=== PATIENT | male | born 2000 | race Two or more races ===

== ENCOUNTER 2019-09-26 08:37 | Emergency (ER) | payer MEDICAID, OTHER ==
[~2019-09-26] VITALS: Ht 177.8 cm; Wt 65.8 kg
[2019-09-26] MEDS ORDERED: ONDANSETRON HCL 4 MG/2 ML VIAL IV ONE (09:00)
[2019-09-26] MEDS ORDERED: FAMOTIDINE (10MG/ML) 2ML VL IV ONE (09:00)
[2019-09-26] MEDS ORDERED: SODIUM CHLORIDE 0.9% 1,000 ML IVB ONE (09:00)
[2019-09-26 09:40] LABS: Basophils # (auto) 0 uL; Basophils % (auto) 0.4 % (0.0-2.0); Eosinophils # (auto) 0.2 uL; Eosinophils % (auto) 1.8 % (0.0-7.0); Hematocrit 46.3 % (41.0-53.0); Hemoglobin 15.8 g/dL (13.5-17.5); Lymphocytes # (auto) 0.8 uL; Lymphocytes % (auto) 6.1 % (10.0-50.0); Mean Corpuscular Hemoglobin 31.1 pg (28.0-32.0); Mean Corpuscular Hgb Conc. 34.1 g/dL (32.0-36.0); Monocytes # (auto) 0.8 uL; Monocytes % (auto) 6.9 % (0.0-12.0); Neutrophils # (auto) 10.4 uL; Neutrophils % (auto) 84.8 % (37.0-80.0); Platelet Count (auto) 245 10^3/uL (140-450); Red Blood Cells 5.09 10^6/uL (4.5-5.90); Red Cell Distribution Width 13.3 % (11.8-14.3); White Blood Cell 12.3 10^3/uL (4.4-10.8)
[2019-09-26 09:57] LABS: Albumin 3.9 g/dL (3.4-5.0); BUN/Creatinine Ratio 20.9; Calcium 8.8 mg/dL (8.5-10.1); Potassium 4.3 mmol/L (3.5-5.1)
[2019-09-26 09:59] LABS: Bilirubin, Total 0.5 mg/dL (0.2-1.0)
[2019-09-26 11:00] VITALS: BP 105/56
== END 2019-09-26 12:13 | disposition home or self-care (01) ==
LOC: ER 08:37
DX: K52.9 Noninfective gastroenteritis and colitis, unspecified (principal)
CPT/HCPCS: 36415; 80053; 83690; 85025; 96361; 96374; 96375; 99283; J2405; J3490; J7030